=== PATIENT | male | born 1990 | race African-American/Black ===

== ENCOUNTER 2017-12-08 03:07 | Emergency (ER) | payer MEDICAID ==
[~2017-12-08] VITALS: Ht 190.5 cm; Wt 78.0 kg
[2017-12-08 10:40] VITALS: BP 121/70
== END 2017-12-08 11:00 | disposition home or self-care (01) ==
LOC: ER 03:07
DX: R13.10 Dysphagia, unspecified (principal)
CPT/HCPCS: 70360; 70490; 74022; 99284